=== PATIENT | female | born 1960 ===

== ENCOUNTER 2021-02-22 04:32 | Day surgery (SDC) | payer OTHER ==
[2021-02-18 11:47] VITALS: BMI 29.8
[~2021-02-22 04:32] MED LIST: LIDOCAINE HCL 1%, 10 MG/ML (20ML VIAL) PNB ONE
[2021-02-22] MEDS ORDERED: LIDOCAINE HCL 1%, 10 MG/ML (20ML VIAL) ONE ×2 (07:23→13:45)
[2021-02-22] MEDS ORDERED: MIDAZOLAM HCL 2 MG/2 ML SINGLE DOSE VIAL ONE ×2 (13:31)
[2021-02-22] MEDS ORDERED: SEVOFLURANE 250 ML BTL ONE (13:33)
[2021-02-22] MEDS ORDERED: LIDOCAINE HCL 1%, 10 MG/ML (20ML VIAL) PNB ONE (16:10)
[2021-02-22 17:01] VITALS: BP 153/94; PULSE 90; TEMP 97.2
== END 2021-02-22 16:41 | disposition home or self-care (01) ==
LOC: JASU-SURG 04:32
PROVIDERS: ATTEND Physical Medicine & Rehabilitation
PROC: 00HU3MZ Insertion of Neurostimulator Lead into Spinal Canal, Percutaneous Approach (ICD-10-PCS; principal; 2021-02-22 12:30)
DX: M48.061 Spinal stenosis, lumbar region without neurogenic claudication (principal); M54.16 Radiculopathy, lumbar region; Z53.8 Procedure and treatment not carried out for other reasons; I10 Essential (primary) hypertension; E11.9 Type 2 diabetes mellitus without complications
CPT/HCPCS: 63650; C1897; 76000-TC-FY; 82962